=== PATIENT | male | born 1965 | race Caucasian/White ===

== ENCOUNTER → 2018-11-17 | Outpatient (REF) ==
--- NOTE | 2018-11-18 03:06 | REP ---
Clinical: Pain and disability. Comparison: 11/22/2010. Technique: AP, lateral, coned-down views of the lumbosacral spine. Findings: The patient is noted to be status post laminectomy and posterior fusion at L3-4. Moderate multilevel degenerative changes through the visualized lower thoracic and lumbosacral spine include endplate sclerosis, minimal disc space narrowing, hypertrophic facet changes. Alignment is maintained. No acute fracture / compression injury or subluxation. Impression: Moderate multilevel degenerative changes. Electronically Signed by Jaycob Bailey MD 11/18/2018 02:57 A
== END ==
LOC: M SMT 13:58
PROVIDERS: ATTEND Internal Medicine
DX: M51.9 Unspecified thoracic, thoracolumbar and lumbosacral intervertebral disc disorder (principal)

== ENCOUNTER → 2020-12-19 | Outpatient (REF) | payer OTHER ==
[~2020-12-19] MED LIST: ALDA25TA2 PO; APAP325T4 PO; ASPI81CH8 PO; AUGM875T28 PO; CARV12.5 PO; DOXY-350 PO; ELIQ5TAB PO; FLOM0.4C39 PO; LABE100T4 PO; LABE100T5 PO; LISI10TA22 PO; LOSA100T5 PO; MAGN400C PO; PANT40TA29 PO; POTA1TAB14 PO; PROAAER10 INH; SYMB16INH INH; TORS20TA2 PO
[2020-12-19 18:18] LABS: APPEARANCE, URINE CLOUDY (CLEAR); BACTERIA, URINE AUTO 1+ (NEGATIVE); BILIRUBIN, URINE AUTO NEGATIVE (NEGATIVE); BLOOD, URINE BLOOD 1+ (NEGATIVE); COLOR, URINE YELLOW (YELLOW); GLUCOSE, URINE (UA) AUTO NEGATIVE (NEGATIVE); KETONE, URINE AUTO NEGATIVE (NEGATIVE); LEUKOCYTE ESTERASE, URINE AUTO 3+ (NEGATIVE); NITRITE, URINE AUTO POSITIVE (NEGATIVE); PROTEIN, URINE AUTO NEGATIVE (NEGATIVE); RBC, URINE AUTO 1 /HPF (0-3); SQUAMOUS EPITHELIAL CELL UR AU 1 /HPF (0-6); UROBILINOGEN, URINE AUTO 0.2 mg/dL (0.0-2.0); WBC, URINE AUTO TNTC /HPF (0-3)
== END ==
LOC: M SMT 16:45
PROVIDERS: ATTEND Nurse Practitioner Women's Health
DX: N40.0 Benign prostatic hyperplasia without lower urinary tract symptoms (principal)

== ENCOUNTER 2021-07-19 06:38 | Day surgery (SDC) | payer OTHER ==
[~2021-07-19] VITALS: Ht 177.8 cm; Wt 105.6 kg
[~2021-07-19 06:38] MED LIST changes: +FAMO20TA PO; +VITMTA PO
[2021-07-19] MEDS: TETRACAINE 0.5% OPHTH SOLN 4ML OS SCH ×2 (06:54→07:01)
[2021-07-19] MEDS ORDERED: DUOVISC (0.50ML VISCOAT/0.85ML PROVISC) OPHTH KIT As Ordered ONE (06:58)
[2021-07-19] MEDS ORDERED: MAXITROL OPHTH SUSP 5 ML As Ordered ONE (06:58)
[2021-07-19] MEDS ORDERED: LIDOCAINE 1% SDV 5ML VIAL As Ordered ONE (06:58)
[2021-07-19] MEDS ORDERED: LR 1,000 ML IV SCH ×2 (07:00→08:55)
[2021-07-19] MEDS: PHENYLEPHRINE 2.5% OPHTH SOL 2ML OS SCH ×3 (07:02→07:19)
[2021-07-19] MEDS: FLURBIPROFEN 0.03% OPHTH SOLN 2.5 ML OS SCH ×3 (07:02→07:19)
[2021-07-19] MEDS: CYCLOPENTOLATE 1% OPHTH SOLN 2 ML BTL OS SCH ×3 (07:02→07:19)
[2021-07-19] MEDS ORDERED: CARVedilol 12.5 MG TAB PO ONE (08:05)
[2021-07-19] MEDS ORDERED: MIDAZOLAM INJ 2MG/2ML VIAL (J2250 PER 1MG) As Ordered ONE (08:13)
[2021-07-19] MEDS ORDERED: fentaNYL 100 MCG/2 ML INJECTION (J3010) As Ordered ONE (08:13)
[2021-07-19 08:55] VITALS: BP 146/88
[2021-07-19] MEDS ORDERED: ONDANSETRON 4MG/2ML VIAL IV PRN (08:55)
--- NOTE | 2021-07-19 15:48 | ROOPDOC ---
[facility] Report Of Operation Report of Operation DATE OF PROCEDURE: 07/19/21 PREPROCEDURE DIAGNOSES: Cataract left eye. POSTPROCEDURE DIAGNOSES: Same. PROCEDURE PERFORMED: Cataract extraction with intraocular lens implantation left eye. SURGEON: Chris Carrasquillo MD INSPECTION CLERK: None ANESTHESIA: Local ESTIMATED BLOOD LOSS: None. COMPLICATIONS: None. SPECIMENS REMOVED: None DESCRIPTION OF PROCEDURE: The patient was brought to the operating room and prepped and draped in the usual sterile fashion and an eyelid speculum was inserted in the right eye. A paracentesis was made and the anterior chamber was inflated with non-preserved lidocaine. This was followed by injection of Viscoat. A groove was made in the superotemporal clear cornea which was tunneled forward with the crescent blade and the anterior chamber was entered with a 2.75 keratome. The cystotome was used to make an incision in the center of the capsule and a continuous curvilinear capsulorhexis was created. The lens was hydrodissected until it was found to rotate freely within the capsular bag. Phacoemulsification was then used to remove the lens in its entirety. Irrigation and aspiration were used to remove residual cortical material. The anterior chamber and capsular bag were reinflated with Provisc and a 19.5 diopter SN60AT lens was injected into the capsular bag using the Polk injector. The lens was dialed into place using the Sinskey hook. Irrigation and aspiration were used to remove residual viscoelastic. The wound was stromally hydrated until was found to be watertight and the eye was in an appropriate pressure. The eyelid speculum was removed from the eye and Maxitrol drops were placed over the left eye. The patient was transferred to the recovery room in stable condition and will follow up tomorrow. The total CDE was 15.43. CHRIS CARRASQUILLO MD Jul 19, 2021 15:48
== END 2021-07-19 08:59 | disposition home or self-care (01) ==
LOC: M SDC 06:38
PROVIDERS: ATTEND Ophthalmology
DX: H25.12 Age-related nuclear cataract, left eye (principal); I25.2 Old myocardial infarction; G47.33 Obstructive sleep apnea (adult) (pediatric); I10 Essential (primary) hypertension; R60.9 Edema, unspecified; R12 Heartburn; J44.9 Chronic obstructive pulmonary disease, unspecified; F17.200 Nicotine dependence, unspecified, uncomplicated; Z88.8 Allergy status to other drugs, medicaments and biological substances; Z79.899 Other long term (current) drug therapy; Z79.01 Long term (current) use of anticoagulants
CPT/HCPCS: 66984; J2250; J3010; V2632

== ENCOUNTER 2021-08-16 08:36 | Day surgery (SDC) | payer OTHER ==
[~2021-08-16] VITALS: Ht 177.8 cm; Wt 106.5 kg
[~2021-08-16 08:36] MED LIST changes: +DUOVISC (0.50ML VISCOAT/0.85ML PROVISC) OPHTH KIT As Ordered ONE; +LIDOCAINE 1% SDV 5ML VIAL As Ordered ONE; +LR 1,000 ML IV SCH
[2021-08-16] MEDS: TETRACAINE 0.5% OPHTH SOLN 4ML OD SCH ×2 (09:14→09:15)
[2021-08-16] MEDS: PHENYLEPHRINE 2.5% OPHTH SOL 2ML OD SCH ×3 (09:15→09:34)
[2021-08-16] MEDS: CYCLOPENTOLATE 1% OPHTH SOLN 2 ML BTL OD SCH ×3 (09:15→09:34)
[2021-08-16] MEDS: FLURBIPROFEN 0.03% OPHTH SOLN 2.5 ML OD SCH ×3 (09:15→09:34)
[2021-08-16] MEDS ORDERED: fentaNYL 100 MCG/2 ML INJECTION As Ordered ONE (09:28)
[2021-08-16] MEDS ORDERED: MIDAZOLAM INJ 2MG/2ML VIAL (J2250 PER 1MG) As Ordered ONE (09:28)
[2021-08-16 11:10] VITALS: BP 130/77
== END 2021-08-16 11:15 | disposition home or self-care (01) ==
LOC: M SDC 08:36
PROVIDERS: ATTEND Ophthalmology
DX: H25.11 Age-related nuclear cataract, right eye (principal); I25.2 Old myocardial infarction; I10 Essential (primary) hypertension; K21.9 Gastro-esophageal reflux disease without esophagitis; J44.9 Chronic obstructive pulmonary disease, unspecified; G47.33 Obstructive sleep apnea (adult) (pediatric); Z87.891 Personal history of nicotine dependence; Z88.8 Allergy status to other drugs, medicaments and biological substances; Z79.01 Long term (current) use of anticoagulants; Z79.899 Other long term (current) drug therapy
CPT/HCPCS: 66984; J2250; J3010; V2632

== ENCOUNTER → 2022-04-09 | Outpatient (REF) ==
[~2022-04-09] MED LIST changes: -DUOVISC (0.50ML VISCOAT/0.85ML PROVISC) OPHTH KIT As Ordered ONE; -LABE100T4 PO; -LABE100T5 PO; +LABE100T6 PO; +LABE100T71 PO; -LIDOCAINE 1% SDV 5ML VIAL As Ordered ONE; -LR 1,000 ML IV SCH
== END ==
LOC: M PLAIMG 11:53
PROVIDERS: ATTEND Internal Medicine
DX: M54.50 Low back pain, unspecified (principal)